=== PATIENT | male | born 1995 | race Caucasian/White ===

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

== ENCOUNTER → 2017-01-03 | Outpatient (CLI) | payer OTHER ==
[~2017-01-03] MED LIST: LIDOCAINE 2% INJ 100 MG/5 ML SDV (FOR ANES.) As Ordered ONE; NS 1,000 ML IV ONE; POTA10PO PO; PRED20TA PO; PROPOFOL 200 MG/20 ML VIAL As Ordered ONE; ULTR50TA PO; ZOFR4TAB3 PO; [UNRECOGNIZED DRUG - OTHER] PO
--- NOTE | 2017-01-03 15:45 | ROOR ---
Patient Name: Christopher Alonso Procedure Date: 01/03/2017 3:34 PM Date of : 1995 Age: 21 Room: [facility] Gender: Male Note Status: Finalized Procedure: Upper GI endoscopy Indications: Functional Dyspepsia, Nausea Providers: Lawson DUCKWORTH MD Referring MD: Fani AGUERO MD Requesting Provider: Medicines: Monitored Anesthesia Care Complications: No immediate complications. Procedure: Pre-Anesthesia Assessment: - The heart rate, respiratory rate, oxygen saturations, blood pressure, adequacy of pulmonary ventilation, and response to care were monitored throughout the procedure. The Endoscope was introduced through the mouth, and advanced to the second part of duodenum. The upper GI endoscopy was accomplished without difficulty. The patient tolerated the procedure well. Findings: Mild gastritis, This was biopsied with a cold forceps for Helicobacter pylori testing. The exam was otherwise without abnormality. Impression: - Mild gastritis - The examination was otherwise normal. Recommendation: - Use Prilosec (omeprazole) 40 mg PO daily. - (the script was sent to your pharmacy on file) Lawson Duckworth MD Lawson DUCKWORTH MD 01/03/2017 3:45:45 PM This report has been signed electronically. Number of Addenda: 0 Note Initiated On: 01/03/2017 3:34 PM Estimated Blood Loss: Estimated blood loss: none.
--- NOTE | 2017-01-03 15:57 | ROOR ---
Patient Name: Christopher Alonso Procedure Date: 01/03/2017 3:34 PM Date of : 1995 Age: 21 Room: [facility] Gender: Male Note Status: Finalized Procedure: Colonoscopy Indications: Suspected irritable bowel syndrome, Irritable bowel syndrome with diarrhea, Chronic diarrhea Providers: Lawson DUCKWORTH MD Referring MD: Fani AGUERO MD Requesting Provider: Medicines: Monitored Anesthesia Care Complications: No immediate complications. Procedure: Pre-Anesthesia Assessment: - The heart rate, respiratory rate, oxygen saturations, blood pressure, adequacy of pulmonary ventilation, and response to care were monitored throughout the procedure. The Colonoscope was introduced through the anus and advanced to 8 cm into the ileum. The colonoscopy was performed without difficulty. The patient tolerated the procedure well. The quality of the bowel preparation was good. Findings: The perianal and digital rectal examinations were normal. (Exam: Complete, Prep: Good or Excellent.) The colon (entire examined portion) appeared normal. The terminal ileum appeared normal. Biopsies for histology were taken with a cold forceps from the entire colon for evaluation of microscopic colitis. Impression: - The colon is normal and examined portion of the ileum was normal. - Biopsies were taken with a cold forceps from the entire colon for evaluation of microscopic colitis. - (Irritable Bowel Syndrome/IBS suspected.) Recommendation: - Continue present medications. - Telephone endoscopist for pathology results in 2 weeks. Lawson Duckworth MD Lawson DUCKWORTH MD 01/03/2017 3:57:27 PM This report has been signed electronically. Number of Addenda: 0 Note Initiated On: 01/03/2017 3:34 PM Estimated Blood Loss: Estimated blood loss: none.
[2017-01-03 16:30] VITALS: BP 127/64
== END | disposition home or self-care (01) ==
LOC: M OPP 14:15
PROVIDERS: ATTEND Internal Medicine Gastroenterology
DX: R19.7 Diarrhea, unspecified (principal); K30 Functional dyspepsia; R11.2 Nausea with vomiting, unspecified; K29.70 Gastritis, unspecified, without bleeding; F90.9 Attention-deficit hyperactivity disorder, unspecified type; Z85.828 Personal history of other malignant neoplasm of skin; Z79.899 Other long term (current) drug therapy